=== PATIENT | female | born 1990 | race Caucasian/White ===

== ENCOUNTER 2022-05-05 17:12 | Emergency (ER) | payer OTHER ==
[2022-05-05] MEDS ORDERED: IBUPROFEN 400 MG TAB ONE (18:11)
--- NOTE | 2022-05-05 18:28 | RAD REPORT ---
EXAM DESCRIPTION: RAD - Chest Single View - 05/05/2022 6:23 pm CLINICAL HISTORY: Cough Chest pain. COMPARISON: No comparisons FINDINGS: Portable technique limits examination quality. The lungs are grossly clear. The heart is normal in size. No displaced fractures. IMPRESSION: No acute intrathoracic process suspected.
--- NOTE | 2022-05-05 18:54 | ER ---
Nurse's Notes [facility] Name: Li Harvey Age: 31 yrs Sex: Female : 1990 Arrival Date: 05/05/2022 Time: 17:14 Bed 17 Private MD: Diagnosis: Acute upper respiratory infection, unspecified Presentation: 05/05 17:20 Chief complaint: Patient states: Chest tightness, cough, headache, fever, congestion X ld1 5. Coronavirus screen: Client presents with at least one sign or symptom that may indicate coronavirus-19. Standard/surgical mask placed on the client. Ebola Screen: No symptoms or risks identified at this time. Initial Sepsis Screen: Does the patient meet any 2 criteria? No. Patient's initial sepsis screen is negative. Does the patient have a suspected source of infection? No. Patient's initial sepsis screen is negative. Risk Assessment: Do you want to hurt yourself or someone else? Patient reports no desire to harm self or others. Onset of symptoms was May 05, 2022. 17:20 Method Of Arrival: Ambulatory ld1 17:20 Acuity: FOUZIA 4 ld1 Triage Assessment: 17:21 General: Appears in no apparent distress. comfortable, Behavior is calm, cooperative, ld1 appropriate for age. Pain: Denies pain. EENT: No signs and/or symptoms were reported regarding the EENT system. Neuro: Level of Consciousness is awake, alert, obeys commands, Oriented to person, place, time, situation, Appropriate for age. Cardiovascular: Capillary refill < 3 seconds Patient's skin is warm and dry. Respiratory: Airway is patent Respiratory effort is even, unlabored. GI: Abdomen is flat, non-distended. : No signs and/or symptoms were reported regarding the genitourinary system. Derm: No signs and/or symptoms reported regarding the dermatologic system. Musculoskeletal: No signs and/or symptoms reported regarding the musculoskeletal system. Historical: - Allergies: 17:21 No Known Allergies; ld1 - Home Meds: 17:21 duloxetine 30 mg oral cpDR 1 cap once daily [Active]; ld1 - PMHx: 17:21 Fibromyalgia; ld1 - PSHx: 17:21 Tubal ligation; ld1 - Immunization history:: Adult Immunizations up to date, Client reports having NOT received the Covid vaccine. - Social history:: Smoking status: Reported history of juuling and/or vaping. Patient/guardian denies using alcohol. Screenin:30 Abuse screen: Denies threats or abuse. Denies injuries from another. Nutritional mb8 screening: No deficits noted. Tuberculosis screening: No symptoms or risk factors identified. Fall Risk None identified. Assessment: 17:28 General: Appears uncomfortable, Behavior is calm, cooperative, appropriate for age. mb8 Pain: Complains of pain in head Pain does not radiate. Pain currently is 8 out of 10 on a pain scale. Quality of pain is described as aching, Current management is with Tylenol, last Tylenol at 1400 today. Cardiovascular: Denies chest pain. Respiratory: Reports shortness of breath cough that is productive, Airway is patent Respiratory effort is even, unlabored, Respiratory pattern is regular, symmetrical, Breath sounds are clear bilaterally. the patient has mild shortness of breath Denies air hunger. GI: Patient currently denies diarrhea, nausea, vomiting. : Denies burning with urination, urinary frequency. 18:04 Reassessment: Patient and/or family updated on plan of care and expected duration. Pain mb8 level reassessed. Patient is alert, oriented x 3, equal unlabored respirations, skin warm/dry/pink. 18:42 Reassessment: Patient and/or family updated on plan of care and expected duration. Pain mb8 level reassessed. Patient is alert, oriented x 3, equal unlabored respirations, skin warm/dry/pink. Patient states feeling better. Vital Signs: 17:20 BP 112 / 76; Pulse 104; Resp 18; Temp 97.9(O); Pulse Ox 100% on R/A; Weight 54.43 kg; ld1 Height 5 ft. 10 in. (177.80 cm); Pain 0/10; 18:08 BP 105 / 79; Pulse 94; Resp 20; Pulse Ox 99% ; Pain 8/10; mb8 18:41 BP 112 / 78; Pulse 82; Resp 16; Pulse Ox 100% on R/A; Pain 5/10; mb8 17:20 Body Mass Index 17.22 (54.43 kg, 177.80 cm) ld1 ED Course: 17:14 Patient arrived in ED. mr 17:16 Maria Isabel Maxwell FNP-C is PHCP. kb 17:16 Alexx Ortega MD is Attending Physician. kb 17:21 Triage completed. ld1 17:21 Arm band placed on right wrist. ld1 17:23 Josh Summers, RN is Primary Nurse. mb8 17:30 Patient has correct armband on for positive identification. Bed in low position. Call mb8 light in reach. Side rails up X2. Client placed on continuous cardiac and pulse oximetry monitoring. NIBP monitoring applied. 17:32 No provider procedures requiring assistance completed. Patient did not have IV access mb8 during this emergency room visit. 18:24 Chest Single View XRAY In Process Unspecified. EDMS Administered Medications: 18:14 Drug: Ibuprofen 800 mg Route: PO; mb8 18:42 Follow up: Response: No adverse reaction; Pain is decreased mb8 Medication: 17:30 VIS not applicable for this client. mb8 Outcome: 18:54 Discharge ordered by MD. kb 19:02 Discharged to home ambulatory. mb8 19:02 Condition: stable 19:02 Discharge instructions given to patient, Instructed on discharge instructions, follow up and referral plans. Demonstrated understanding of instructions, follow-up care. 19:02 Patient left the ED. mb8 Signatures: Dispatcher [employer] EDMS Maria Isabel Maxwell, [employer]-C [employer]-Mary MasonaKarine mr Nannette Woods RN RN ld1 Josh Summers, RN RN mb8 Corrections: (The following items were deleted from the chart) 17:22 17:21 Home Meds: None; ld1 ld1 17:22 17:21 PMHx: None; ld1 ld1
--- NOTE | 2022-05-05 18:55 | EDPHYS ---
Physician Documentation [facility] Name: Li Harvey Age: 31 yrs Sex: Female : 1990 Arrival Date: 05/05/2022 Time: 17:14 Bed 17 Private MD: ED Physician Alexx Ortega HPI: 05/05 20:05 This 31 yrs old Female presents to ER via Ambulatory with complaints of Flu Symptoms. kb 20:05 The patient or guardian reports cough, that is intermittent, described as mild, flu kb symptoms, low-grade fever, myalgias. Onset: The symptoms/episode began/occurred 7 day(s) ago. Severity of symptoms: At their worst the symptoms were moderate, in the emergency department the symptoms are unchanged. Modifying factors: The symptoms are alleviated by nothing, the symptoms are aggravated by nothing. Associated signs and symptoms: Pertinent positives: fever, rhinorrhea. The patient has not experienced similar symptoms in the past. The patient has not recently seen a physician. Historical: - Allergies: 17:21 No Known Allergies; ld1 - Home Meds: 17:21 duloxetine 30 mg oral cpDR 1 cap once daily [Active]; ld1 - PMHx: 17:21 Fibromyalgia; ld1 - PSHx: 17:21 Tubal ligation; ld1 - Immunization history:: Adult Immunizations up to date, Client reports having NOT received the Covid vaccine. - Social history:: Smoking status: Reported history of juuling and/or vaping. Patient/guardian denies using alcohol. ROS: 20:05 Abdomen/GI: Negative for abdominal pain, nausea, vomiting, diarrhea, and constipation. kb 20:05 Constitutional: Positive for body aches, chills, fatigue, malaise. 20:05 ENT: Positive for rhinorrhea, sinus congestion. 20:05 Respiratory: Positive for cough, Negative for dyspnea on exertion, hemoptysis, orthopnea, pleurisy, shortness of breath, sputum production, wheezing. 20:05 Neuro: Positive for headache. 20:05 All other systems are negative. Exam: 20:04 Constitutional: This is a well developed, well nourished patient who is awake, alert, kb and in no acute distress. Head/Face: Normocephalic, atraumatic. ENT: Moist Mucous membranes Cardiovascular: Regular rate and rhythm with a normal S1 and S2. No gallops, murmurs, or rubs. No pulse deficits. Respiratory: Respirations even and unlabored. No increased work of breathing. Talking in full sentences Abdomen/GI: Soft, non-tender. No distention Skin: Warm, dry with normal turgor. Normal color. MS/ Extremity: Pulses equal, no cyanosis. Neurovascular intact. Full, normal range of motion. Neuro: Awake and alert, GCS 15, oriented to person, place, time, and situation. Moves all extremities. Normal gait. Psych: Awake, alert, with orientation to person, place and time. Behavior, mood, and affect are within normal limits. Vital Signs: 17:20 BP 112 / 76; Pulse 104; Resp 18; Temp 97.9(O); Pulse Ox 100% on R/A; Weight 54.43 kg; ld1 Height 5 ft. 10 in. (177.80 cm); Pain 0/10; 18:08 BP 105 / 79; Pulse 94; Resp 20; Pulse Ox 99% ; Pain 8/10; mb8 18:41 BP 112 / 78; Pulse 82; Resp 16; Pulse Ox 100% on R/A; Pain 5/10; mb8 17:20 Body Mass Index 17.22 (54.43 kg, 177.80 cm) ld1 MDM: 17:20 Patient medically screened. kb 20:04 Data reviewed: vital signs, nurses notes. Data interpreted: Pulse oximetry: on room air kb is 100 %. Interpretation: normal. Counseling: I had a detailed discussion with the patient and/or guardian regarding: the historical points, exam findings, and any diagnostic results supporting the discharge/admit diagnosis, lab results, radiology results, the need for outpatient follow up, a family practitioner, to return to the emergency department if symptoms worsen or persist or if there are any questions or concerns that arise at home. 05/05 17:21 Order name: Flu; Complete Time: 18:11 kb 05/05 17:21 Order name: COVID-19 SARS RT PCR (Document "Date of Onset" if Symptomatic); Complete kb Time: 18:25 05/05 17:21 Order name: Chest Single View XRAY; Complete Time: 18:31 kb Administered Medications: 18:14 Drug: Ibuprofen 800 mg Route: PO; mb8 18:42 Follow up: Response: No adverse reaction; Pain is decreased mb8 Disposition Summary: 05/05/22 18:54 Discharge Ordered Location: Home kb Condition: Stable kb Diagnosis - Acute upper respiratory infection, unspecified kb Followup: kb - With: Emergency Department - When: As needed - Reason: Worsening of condition Followup: kb - With: Private Physician - When: 2 - 3 days - Reason: Recheck today's complaints, Continuance of care, Re-evaluation by your physician Discharge Instructions: - Discharge Summary Sheet kb - Upper Respiratory Infection, Adult, [id number] kb - Viral Respiratory Infection, [id number] kb Forms: - Medication Reconciliation Form kb - Thank You Letter kb - Antibiotic Education kb - Prescription Opioid Use kb Signatures: Dispatcher [employer] EDMaria Isabel Lezama, LESLEY-Yolanda SUTTON-Nannette Parker, RN RN ld1 Josh Summers RN RN mb8 Corrections: (The following items were deleted from the chart) 17: 17:21 Home Meds: None; ld1 ld1 17: 17:21 PMHx: None; ld1 ld1
[2022-05-05 20:02] VITALS: TEMP 97.9
[2022-05-05 20:04] VITALS: BP 112/78; O2SAT 100
== END 2022-05-05 19:02 | disposition home or self-care (01) ==
LOC: ER 17:12
DX: J06.9 Acute upper respiratory infection, unspecified (principal); Z20.822 Contact with and (suspected) exposure to COVID-19
CPT/HCPCS: 87804 ×2; 71045; 99283; U0003